=== PATIENT | female | born 1985 | race Caucasian/White ===

== ENCOUNTER 2018-10-09 18:15 | Emergency (ER) | payer OTHER ==
[~2018-10-09] VITALS: Ht 160 cm; Wt 93.2 kg
[2018-10-09 18:32] VITALS: BP 161/110
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
[2018-10-09] MEDS ORDERED: ketorolac tromethamine 15mg/ml inj. IM ONE (19:05)
[2018-10-09] MEDS ORDERED: LIDOcaine 5% patch TP ONE (19:30)
== END 2018-10-09 19:54 | disposition home or self-care (01) ==
LOC: EDBD 18:16 → ER 18:16
DX: S16.1XXA Strain of muscle, fascia and tendon at neck level, initial encounter (principal); Z88.5 Allergy status to narcotic agent; V89.2XXA Person injured in unspecified motor-vehicle accident, traffic, initial encounter; Y93.89 Activity, other specified; Y92.89 Other specified places as the place of occurrence of the external cause; Y99.8 Other external cause status
CPT/HCPCS: 72040; 96372; 99283; J1885